=== PATIENT | male | born 1965 | race Caucasian/White ===

== ENCOUNTER → 2017-09-27 | Outpatient (CLI) | payer OTHER ==
[~2017-09-27] MED LIST: AMLO-1 PO; CLO75 PO; CLON1 PO; ESC10 PO; FISH OIL1 CAP PO; FLAXSEED; MULT-820 PO; MULT1CAP59 PO; NEBI20TA3 PO; PER PO; POTA99TA6 PO; ROS10 PO; TRIA-20 PO
--- NOTE | 2017-09-27 17:19 | RADIOLOGY IMAGING REPORT ---
FACILITY: [facility] PATIENT NAME: Steffen Bauman : 1965 MR: [id number] V: [id number] EXAM DATE: ORDERING PHYSICIAN: RAGHU GARCIA TECHNOLOGIST: Location: [facility] [place] Patient: Steffen Bauman : 1965 Visit/Account:[id number] Date of Sevice: 09/27/2017 Venous Doppler ultrasound right lower extremity Indication: Right leg pain.. Comparison: None Available Findings: Duplex Doppler and color flow imaging was performed. The common femoral, femoral, and popl iteal veins are all patent and compressible with normal Doppler wave forms. There are normal respons es to augmentation. The posterior tibial and peroneal veins are patent in the calf. The proximal greater saphenous vein i s also normal. The popliteal fossa does show a Quinteros's cyst measuring 3.1 x 0.9 x 3.3 cm. IMPRESSION: 1. No evidence of deep venous thrombosis of the right lower extremity. 2. Right Quinteros's cyst. I called report to RAGHU GARCIA at 09/27/2017 5:14 PM. Report Dictated By: Brent Martínez at 09/27/2017 5:10 PM Report E-Signed By: Brent Martínez at 09/27/2017 5:15 PM WSN:[id number]
== END ==
LOC: US 15:50
PROVIDERS: ATTEND Nurse Practitioner Family
DX: M71.21 Synovial cyst of popliteal space [Baker], right knee (principal)

== ENCOUNTER → 2017-10-09 | Outpatient (CLI) | payer OTHER ==
[2017-10-09 09:40] LABS: PLATELET COUNT, AUTOMATED 236 K/uL (150-450)
--- NOTE | 2017-10-09 11:04 | EKG ---
FACILITY: [facility] PATIENT NAME: OBEY MADDEN : [id number] MR: [id number] V: [id number] EXAM DATE: ORDERING PHYSICIAN: RAGHU HAYNES TECHNOLOGIST: MARQUES Giles Reason : PRE-OP KNEE Blood Pressure : / mmHG Vent. Rate : 048 BPM Atrial Rate : 048 BPM P-R Int : 166 ms QRS Dur : 086 ms QT Int : 482 ms P-R-T Axes : 061 044 039 degrees QTc Int : 430 ms Marked sinus bradycardia with sinus arrhythmia Abnormal ECG No previous ECGs available Confirmed by Harshad Mendoza ([id number] on 10/09/2017 1:08:10 PM Referred By: IVY Confirmed By:Harshad Byrnes
== END ==
LOC: LAB 09:15
PROVIDERS: ATTEND Anesthesiology
DX: Z01.812 Encounter for preprocedural laboratory examination (principal); Z01.810 Encounter for preprocedural cardiovascular examination; R94.31 Abnormal electrocardiogram [ECG] [EKG]; R00.1 Bradycardia, unspecified; I49.9 Cardiac arrhythmia, unspecified; S83.281A Other tear of lateral meniscus, current injury, right knee, initial encounter
CPT/HCPCS: 36415; 82040; 82247; 82310; 82374; 82435; 82565; 82947; 84075; 84132; 84155; 84295; 84450; 84460; 84520; 85025; 93005